=== PATIENT | female | born 1935 | race Hispanic/Latino ===

== ENCOUNTER 2018-04-01 21:41 | Emergency (ER) | payer MEDICARE ==
[~2018-04-01 21:41] MED LIST: AMLO5TAB2 PO; ASPI-1197 PO; ATOR20TA65 PO; CLOP75TA14 PO; FURO-152 PO; HUM10VIA6 SQ; HYDR25TA PO; ISOS60TA4 PO; LOSA50TA37 PO; METO50TA18 PO; RANO10003 PO
[2018-04-01 22:31] LABS: BASOPHILS % (AUTO) 0.3 % (0.0-5.0); EOSINOPHILS % (AUTO) 0.8 % (0.0-8.0); HEMATOCRIT 35.8 % (36-48); LYMPHOCYTES % (AUTO) 13.7 % (21.0-51.0); MEAN CORPUSCULAR HEMOGLOBIN 33.8 pg (27.0-33.0); MEAN CORPUSCULAR HGB CONC 35.6 g/dL (32.0-36.0); MEAN CORPUSCULAR VOLUME 94.9 fL (79-99); MONOCYTES % (AUTO) 5.6 % (3.0-13.0); NEUTROPHILS % (AUTO) 79.6 % (40.0-77.0); PLATELET COUNT (AUTO) 218 K/uL (130-400); RED BLOOD CELL COUNT(AUTO) 3.77 MIL/uL (4.00-5.50); RED CELL DISTRIBUTION WIDTH 12.8 % (11.0-15.5)
[2018-04-01 22:43] LABS: ALBUMIN 3.6 g/dL (3.5-5.0); BILIRUBIN,TOTAL 0.5 mg/dL (0.2-1.0); TOTAL PROTEIN, SERUM 7.1 g/dL (6.0-8.3)
[2018-04-01 23:14] LABS: CREATINE KINASE, TOTAL 90 U/L (21-232)
[2018-04-01 23:16] LABS: LIPASE < 50 U/L (114-286)
[2018-04-01 23:23] LABS: APPEARANCE,URINE Clear (CLEAR); BILIRUBIN,URINE Negative (NEGATIVE); COLOR,URINE Yellow (YELLOW); GLUCOSE, URINE (UA) TRACE mg/dL (NEGATIVE); KETONES,URINE Negative (NEGATIVE); LEUKOCYTE ESTERASE ,URINE Moderate (NEGATIVE); NITRATE,URINE Positive (NEGATIVE); OCCULT BLOOD,URINE Negative (NEGATIVE); PROTEIN,URINE POS 1+ (NEGATIVE)
[2018-04-01 23:32] LABS: RBC,URINE None Seen /HPF (0-1)
[2018-04-01 23:33] LABS: BACTERIA,URINE Many /HPF (None Seen); SQUAMOUS EPITHELIAL CELL,UR Few /HPF (0-2)
[2018-04-02] MEDS ORDERED: SODIUM CHLORIDE 0.9% 50 ML IV ONE (00:45)
[2018-04-02] MEDS ORDERED: CEFTRIAXONE SODIUM 1 GM ONE (00:45)
== END 2018-04-02 01:26 | disposition home or self-care (01) ==
LOC: EDH 21:41
DX: N39.0 Urinary tract infection, site not specified (principal); E86.0 Dehydration; R11.10 Vomiting, unspecified; E78.5 Hyperlipidemia, unspecified; I10 Essential (primary) hypertension; E11.40 Type 2 diabetes mellitus with diabetic neuropathy, unspecified; I25.810 Atherosclerosis of coronary artery bypass graft(s) without angina pectoris; Z86.73 Personal history of transient ischemic attack (TIA), and cerebral infarction without residual deficits; Z95.1 Presence of aortocoronary bypass graft
CPT/HCPCS: 36415; 80053; 81001; 82550; 83690; 84484; 85025; 93005; 96374; 99285; J0696

== ENCOUNTER 2018-07-29 10:15 | Emergency (ER) | payer MEDICARE ==
[~2018-07-29 10:15] MED LIST changes: -AMLO5TAB2 PO; +AMLO5TAB7 PO; +LOSA50TA25 PO; -LOSA50TA37 PO
[2018-07-29 10:43] LABS: BASOPHILS % (AUTO) 0.5 % (0.0-5.0); EOSINOPHILS % (AUTO) 0.7 % (0.0-8.0); HEMATOCRIT 39.3 % (36-48); LYMPHOCYTES % (AUTO) 18.6 % (21.0-51.0); MEAN CORPUSCULAR HGB CONC 35.3 g/dL (32.0-36.0); MEAN CORPUSCULAR VOLUME 96.3 fL (79-99); NEUTROPHILS % (AUTO) 72.2 % (40.0-77.0); PLATELET COUNT (AUTO) 260 K/uL (130-400); RED BLOOD CELL COUNT(AUTO) 4.09 MIL/uL (4.00-5.50); RED CELL DISTRIBUTION WIDTH 12.8 % (11.0-15.5); WHITE BLOOD COUNT (AUTO) 5.9 K/uL (4.8-10.8)
[2018-07-29 10:50] LABS: CREATININE 1.2 mg/dL (0.5-1.5); POTASSIUM 4.9 mmol/L (3.5-5.1)
[2018-07-29 10:58] LABS: ALBUMIN 3.9 g/dL (3.5-5.0); BILIRUBIN,TOTAL 0.5 mg/dL (0.2-1.0); TOTAL PROTEIN, SERUM 7.9 g/dL (6.0-8.3)
[2018-07-29 13:11] LABS: APPEARANCE,URINE Clear (CLEAR); BILIRUBIN,URINE Negative (NEGATIVE); COLOR,URINE Yellow (YELLOW); GLUCOSE, URINE (UA) 500 mg/dL (NEGATIVE); KETONES,URINE Trace mg/dL (NEGATIVE); LEUKOCYTE ESTERASE ,URINE Small (NEGATIVE); NITRATE,URINE Negative (NEGATIVE); OCCULT BLOOD,URINE Negative (NEGATIVE); PH,URINE 6.5 (5.0-8.0); PROTEIN,URINE Negative (NEGATIVE); UROBILINOGEN,URINE 0.2 mg/dL (0.2-1.0)
[2018-07-29 13:28] LABS: BACTERIA,URINE Rare /HPF (None Seen); RBC,URINE 0-1 /HPF (0-1); SQUAMOUS EPITHELIAL CELL,UR Rare /HPF (0-2); TRANSITIONAL EPI CELLS,URINE Few /HPF (None Seen)
[2018-07-29] MEDS ORDERED: ONDANSETRON HCL 4 MG/2 ML VIAL ONE (14:13)
== END 2018-07-29 14:32 | disposition home or self-care (01) ==
LOC: EDH 10:15
DX: N39.0 Urinary tract infection, site not specified (principal); R53.1 Weakness; I25.10 Atherosclerotic heart disease of native coronary artery without angina pectoris; E11.40 Type 2 diabetes mellitus with diabetic neuropathy, unspecified; E78.5 Hyperlipidemia, unspecified; I10 Essential (primary) hypertension; Z86.73 Personal history of transient ischemic attack (TIA), and cerebral infarction without residual deficits
CPT/HCPCS: 36415; 80053; 81001; 84484; 85025; 93005; 96374; 99285; J2405

== ENCOUNTER 2018-08-11 08:24 | Emergency (ER) | payer MEDICARE ==
[2018-08-11] MEDS ORDERED: ASPIRIN 325 MG TABLET ONE (08:36)
[2018-08-11] MEDS ORDERED: MAG HYDROX/AL HYDROX/SIMETH ES 30 ML SUSP UDCUP ONE (10:03)
[2018-08-11] MEDS ORDERED: FAMOTIDINE 20MG TAB 20 MG TAB ONE (10:03)
[2018-08-11] MEDS ORDERED: LIDOCAINE HCL 2% VISCOUS 15 ML UDCUP ONE (10:03)
== END 2018-08-11 11:38 | disposition home or self-care (01) ==
LOC: EDH 08:24
DX: K21.9 Gastro-esophageal reflux disease without esophagitis (principal); R07.89 Other chest pain; I25.10 Atherosclerotic heart disease of native coronary artery without angina pectoris; E11.40 Type 2 diabetes mellitus with diabetic neuropathy, unspecified; E78.5 Hyperlipidemia, unspecified; I10 Essential (primary) hypertension; Z86.73 Personal history of transient ischemic attack (TIA), and cerebral infarction without residual deficits; Z79.4 Long term (current) use of insulin
CPT/HCPCS: 71045; 84484; 93005

== ENCOUNTER → 2018-08-27 | Outpatient (CLI) | payer MEDICARE | END | disposition home or self-care (01) | LOC: RAH 09:21 | PROVIDERS: ATTEND Internal Medicine Gastroenterology | DX: K22.8 Other specified diseases of esophagus (principal); R11.0 Nausea; R68.81 Early satiety; R63.4 Abnormal weight loss | CPT/HCPCS: 74240 ==

== ENCOUNTER → 2019-01-07 | Outpatient (CLI) | payer MEDICARE ==
[~2019-01-07] MED LIST changes: -AMLO5TAB7 PO; +AMLO5TAB9 PO; -LOSA50TA25 PO; +LOSA50TA64 PO
== END | disposition home or self-care (01) ==
LOC: RAH 10:50
PROVIDERS: ATTEND Internal Medicine Gastroenterology
DX: R10.9 Unspecified abdominal pain (principal); R11.0 Nausea; R63.4 Abnormal weight loss; R68.81 Early satiety
CPT/HCPCS: 78264; A9541

== ENCOUNTER 2019-04-02 10:55 | Emergency (ER) | payer MEDICARE ==
[2019-04-02] MEDS ORDERED: ACETAMINOPHEN EXTRA STRENGTH 500 MG TABLET ONE (11:19)
[2019-04-02] MEDS ORDERED: CLINDAMYCIN HCL 150 MG CAP ONE (11:19)
[2019-04-02 11:43] LABS: CREATININE 1.1 mg/dL (0.5-1.5); POTASSIUM 4.5 mmol/L (3.5-5.1)
[2019-04-02 11:48] LABS: BASOPHILS % (AUTO) 0.3 % (0.0-5.0); EOSINOPHILS % (AUTO) 0.5 % (0.0-8.0); HEMATOCRIT 34.3 % (36-48); LYMPHOCYTES % (AUTO) 10.2 % (21.0-51.0); MEAN CORPUSCULAR HEMOGLOBIN 33.1 pg (27.0-33.0); MEAN CORPUSCULAR HGB CONC 34.4 g/dL (32.0-36.0); MEAN CORPUSCULAR VOLUME 96.1 fL (79-99); MONOCYTES % (AUTO) 7.7 % (3.0-13.0); NEUTROPHILS % (AUTO) 81.3 % (40.0-77.0); PLATELET COUNT (AUTO) 190 K/uL (130-400); RED BLOOD CELL COUNT(AUTO) 3.56 MIL/uL (4.00-5.50); RED CELL DISTRIBUTION WIDTH 12.6 % (11.0-15.5); WHITE BLOOD COUNT (AUTO) 8.4 K/uL (4.8-10.8)
[2019-04-05] MEDS ORDERED: HYDR25TA PO (06:40)
[2019-04-05] MEDS ORDERED: FURO20TA4 PO (06:40)
[2019-04-05] MEDS ORDERED: AMLO5TAB9 PO (06:40)
[2019-04-05] MEDS ORDERED: PROM25TA7 PO (06:40)
[2019-04-05] MEDS ORDERED: CLOP75TA32 PO (06:40)
[2019-04-05] MEDS ORDERED: RANO10003 PO (06:40)
[2019-04-05] MEDS ORDERED: ISOS60TA4 PO (06:40)
[2019-04-05] MEDS ORDERED: METO50TA18 PO (06:40)
[2019-04-05] MEDS ORDERED: LOSA50TA64 PO (06:40)
[2019-04-05] MEDS ORDERED: ATOR10 PO (06:40)
[2019-04-05] MEDS ORDERED: PANT20TA12 PO (06:40)
== END 2019-04-02 12:21 | disposition home or self-care (01) ==
LOC: EDH 10:55
DX: L03.032 Cellulitis of left toe (principal); E78.5 Hyperlipidemia, unspecified; I10 Essential (primary) hypertension; E11.40 Type 2 diabetes mellitus with diabetic neuropathy, unspecified; I25.10 Atherosclerotic heart disease of native coronary artery without angina pectoris; Z79.4 Long term (current) use of insulin; Z86.73 Personal history of transient ischemic attack (TIA), and cerebral infarction without residual deficits
CPT/HCPCS: 36415; 73630; 80048; 85025

== ENCOUNTER 2019-07-22 23:46 | Inpatient (IN) | payer MEDICARE ==
[~2019-07-22] VITALS: Ht 152.4 cm; Wt 67.6 kg
[~2019-07-22 23:46] MED LIST changes: -ASPI-1197 PO; +ATOR10 PO; -ATOR20TA65 PO; -CLOP75TA14 PO; +CLOP75TA32 PO; +COLL30OI TP; -FURO-152 PO; +FURO20TA4 PO; -HUM10VIA6 SQ; +NITR0.4T50 SL; +PANT20TA12 PO; +PROM25TA7 PO
[2019-07-23 00:02] LABS: BASOPHILS % (AUTO) 0.4 % (0.0-5.0); EOSINOPHILS % (AUTO) 2.1 % (0.0-8.0); HEMATOCRIT 37.2 % (36-48); LYMPHOCYTES % (AUTO) 13.4 % (21.0-51.0); MEAN CORPUSCULAR HEMOGLOBIN 32.9 pg (27.0-33.0); MEAN CORPUSCULAR HGB CONC 34.4 g/dL (32.0-36.0); MEAN CORPUSCULAR VOLUME 95.7 fL (79-99); MONOCYTES % (AUTO) 7.9 % (3.0-13.0); NEUTROPHILS % (AUTO) 76.2 % (40.0-77.0); PLATELET COUNT (AUTO) 250 K/uL (130-400); RED BLOOD CELL COUNT(AUTO) 3.89 MIL/uL (4.00-5.50); RED CELL DISTRIBUTION WIDTH 13.8 % (11.0-15.5); WHITE BLOOD COUNT (AUTO) 6.9 K/uL (4.8-10.8)
[2019-07-23 00:10] LABS: POTASSIUM 4.8 mmol/L (3.5-5.1)
[2019-07-23 00:15] LABS: ALBUMIN 3.9 g/dL (3.5-5.0); BILIRUBIN,TOTAL 0.5 mg/dL (0.2-1.0); TOTAL PROTEIN, SERUM 7.9 g/dL (6.0-8.3)
[2019-07-23 00:37] LABS: INR 0.93 (0.85-1.15); PROTHROMBIN TIME 9.8 SEC (9.6-11.6)
[2019-07-23] MEDS ORDERED: ORPHENADRINE CITRATE 30 MG/ML ML ONE (02:44)
[2019-07-23] MEDS ORDERED: LIDOCAINE 5% TOPICAL PATCH TP ONE (02:45)
[2019-07-23] MEDS ORDERED: SODIUM CHLORIDE 0.9% 500ML 500 ML IV ONE (02:46)
[2019-07-23] MEDS ORDERED: ASPIRIN 325 MG TABLET ONE (03:26)
[2019-07-23] MEDS ORDERED: ONDANSETRON HCL 4 MG/2 ML VIAL ONE (03:26)
[2019-07-23] MEDS ORDERED: MORPHINE SULFATE 2 MG/ML 1ML SYG ONE (03:27)
[2019-07-23] MEDS ORDERED: ONDANSETRON HCL 4 MG/2 ML VIAL IV PRN (05:00)
[2019-07-23] MEDS ORDERED: MORPHINE SULFATE 2 MG/ML 1ML SYG IV PRN (05:00)
[2019-07-23] MEDS ORDERED: NITROGLYCERIN 0.4 MG SL TAB SL PRN (05:00)
[2019-07-23] MEDS ORDERED: HYDRALAZINE HCL 20 MG/ML VIAL IV PRN (05:00)
[2019-07-23] MEDS ORDERED: ACETAMINOPHEN 325 MG TAB PO PRN (05:00)
[2019-07-23] MEDS ORDERED: MORPHINE SULFATE 4 MG/1ML SYG IV PRN (05:00)
[2019-07-23 05:26] VITALS: BP 121/90
[2019-07-23 06:25] LABS: TROPONIN I 0.21 ng/mL (0.00-0.06)
[2019-07-23 07:00] VITALS: BP 141/46
[2019-07-23 07:58] LABS: BASOPHILS % (AUTO) 0.3 % (0.0-5.0); EOSINOPHILS % (AUTO) 0.7 % (0.0-8.0); HEMATOCRIT 36.1 % (36-48); LYMPHOCYTES % (AUTO) 10.2 % (21.0-51.0); MEAN CORPUSCULAR HEMOGLOBIN 33.6 pg (27.0-33.0); MEAN CORPUSCULAR HGB CONC 34.6 g/dL (32.0-36.0); MEAN CORPUSCULAR VOLUME 96.8 fL (79-99); MONOCYTES % (AUTO) 6.6 % (3.0-13.0); NEUTROPHILS % (AUTO) 82.2 % (40.0-77.0); PLATELET COUNT (AUTO) 213 K/uL (130-400); RED BLOOD CELL COUNT(AUTO) 3.72 MIL/uL (4.00-5.50); RED CELL DISTRIBUTION WIDTH 13.8 % (11.0-15.5); WHITE BLOOD COUNT (AUTO) 6.8 K/uL (4.8-10.8)
[2019-07-23 08:09] LABS: ALBUMIN 3.5 g/dL (3.5-5.0); BILIRUBIN,TOTAL 0.5 mg/dL (0.2-1.0); TOTAL PROTEIN, SERUM 7.2 g/dL (6.0-8.3)
[2019-07-23] MEDS: FAMOTIDINE/PF 20 MG/2 ML VIAL IV SCH (08:56)
[2019-07-23] MEDS: ENOXAPARIN SODIUM 30 MG/0.3 ML SQ SCH (08:57)
[2019-07-23] MEDS ORDERED: METOPROLOL TARTRATE 25 MG TAB PO SCH (09:00)
[2019-07-23] MEDS ORDERED: AEC81 PO (09:11)
[2019-07-23] MEDS ORDERED: CIPR-245 PO (09:11)
[2019-07-23] MEDS: SODIUM CHLORIDE 0.9% 1000ML 1,000 ML IV SCH ×2 (10:46→22:07)
[2019-07-23 11:00] VITALS: BP 125/33
[2019-07-23 12:33] LABS: TROPONIN I 1.31 ng/mL (0.00-0.06)
--- NOTE | 2019-07-23 14:05 | NUR ---
NOTIFIED DR. Humberto CHOWDHURY VIA TELEPHONE RE:TROPONIN-1.31 AND PT. DENIES C/O CHEST PAIN OR TIGHTNESS, NO NEW ORDERS RECEIVED. STATES WILL BE IN TO SEE PT. LATER TODAY.
[2019-07-23 15:00] VITALS: BP 131/42
--- NOTE | 2019-07-23 17:45 | NUR ---
DR. Humberto CHOWDHURY IN ROOM WITH PT. FOR CONSULT; THIS NURSE MOTOR POOL CLERK. PLAN OF CARE EXPLAINED BY DR. CHOWDHURY. QUESTIONS ANSWERED BY LASER BEAM MACHINE OPERATOR, PT. VERBALIZED UNDERSTANDING. Addendum: 07/23/19 at 1755 by LORI GERARDO RN RN PT. ASSESSED BY AT THIS TIME.
[2019-07-23] MEDS: ISOSORBIDE MONO 60 MG TAB.SR PO SCH (18:30)
--- NOTE | 2019-07-23 19:04 | NUR ---
cm note met with patient and states resides at home with son beckie montoya, pt uses walker an cane for ambulation, has w/c and hospital bed. . provider 2hrs daily, provider or daughter take to [facility] dc plan is back tohome at time of dc. no dc needs. Addendum: 07/23/19 at 1907 by ROGELIO SCHILLING CM Amended: Links added.
[2019-07-23 19:09] LABS: TROPONIN I 2.27 ng/mL (0.00-0.06)
[2019-07-23 20:22] VITALS: BP 138/44
[2019-07-23] MEDS: ATORVASTATIN CALCIUM 40 MG TABLET PO SCH (20:57)
[2019-07-23] MEDS: CARVEDILOL 25 MG TABLET PO SCH (20:57)
[2019-07-23] MEDS: CLOPIDOGREL BISULFATE 75 MG TAB PO SCH (20:57)
[2019-07-23] MEDS: LOSARTAN 100 MG TABLET PO SCH (21:00)
[2019-07-23] MEDS: ASPIRIN 81 MG EC TAB PO SCH (21:06)
[2019-07-23] MEDS: ACETAMINOPHEN 325 MG TAB PO PRN (21:06)
[2019-07-23 23:53] VITALS: BP 129/44
[2019-07-24 04:13] VITALS: BP 127/41
[2019-07-24 07:26] VITALS: BP 132/42
[2019-07-24] MEDS ORDERED: ASPIRIN 81 MG EC TAB PO SCH (09:00)
[2019-07-24] MEDS ORDERED: ISOSORBIDE MONO 60 MG TAB.SR PO SCH (09:00)
[2019-07-24] MEDS ORDERED: CLOPIDOGREL BISULFATE 75 MG TAB PO SCH (09:00)
[2019-07-24] MEDS: CLOPIDOGREL BISULFATE 75 MG TAB PO SCH (09:02)
[2019-07-24] MEDS: ASPIRIN 81 MG EC TAB PO SCH (09:02)
[2019-07-24] MEDS: CARVEDILOL 25 MG TABLET PO SCH ×2 (09:02→20:30)
[2019-07-24] MEDS: ENOXAPARIN SODIUM 30 MG/0.3 ML SQ SCH (09:03)
[2019-07-24] MEDS: ISOSORBIDE MONO 60 MG TAB.SR PO SCH (09:03)
[2019-07-24] MEDS: SODIUM CHLORIDE 0.9% 1000ML 1,000 ML IV SCH ×2 (09:04→17:48)
[2019-07-24] MEDS: FAMOTIDINE/PF 20 MG/2 ML VIAL IV SCH (09:12)
[2019-07-24] MEDS ORDERED: ACETAMINOPHEN 325 MG TAB PO SCH (10:15)
[2019-07-24 10:24] LABS: BASOPHILS % (AUTO) 0.4 % (0.0-5.0); EOSINOPHILS % (AUTO) 1.8 % (0.0-8.0); HEMATOCRIT 34.6 % (36-48); LYMPHOCYTES % (AUTO) 14.2 % (21.0-51.0); MEAN CORPUSCULAR HEMOGLOBIN 33.1 pg (27.0-33.0); MEAN CORPUSCULAR HGB CONC 34.3 g/dL (32.0-36.0); MEAN CORPUSCULAR VOLUME 96.6 fL (79-99); MONOCYTES % (AUTO) 8.4 % (3.0-13.0); NEUTROPHILS % (AUTO) 75.2 % (40.0-77.0); PLATELET COUNT (AUTO) 216 K/uL (130-400); RED BLOOD CELL COUNT(AUTO) 3.59 MIL/uL (4.00-5.50); RED CELL DISTRIBUTION WIDTH 13.4 % (11.0-15.5); WHITE BLOOD COUNT (AUTO) 5.2 K/uL (4.8-10.8)
[2019-07-24 10:46] LABS: POTASSIUM 5.1 mmol/L (3.5-5.1)
[2019-07-24 10:47] LABS: ALBUMIN 3.3 g/dL (3.5-5.0); BILIRUBIN,TOTAL 1.3 mg/dL (0.2-1.0); CREATININE 1.1 mg/dL (0.5-1.5); TOTAL PROTEIN, SERUM 6.7 g/dL (6.0-8.3)
[2019-07-24 11:06] VITALS: BP 133/37
--- NOTE | 2019-07-24 11:08 | NUR ---
DR. Ryan SULLIVAN IN ROOM SPEAKING WITH PT.
[2019-07-24] MEDS: LOSARTAN 100 MG TABLET PO SCH (11:33)
[2019-07-24 19:51] VITALS: BP 107/32
[2019-07-24] MEDS: ATORVASTATIN CALCIUM 40 MG TABLET PO SCH (20:29)
[2019-07-24] MEDS ORDERED: INSULIN HUMULIN R 100 UNIT/ML 3ML ONE (21:15)
--- NOTE | 2019-07-24 22:38 | NUR ---
chest pain currently patient denies any chest pain and or chest discomfort. call light within reach and daughter at bedside. Patient asymptomatic at rest, no distress noted.
[2019-07-24 23:51] VITALS: BP 126/45
--- NOTE | 2019-07-25 01:00 | NUR ---
reports chest pressure reports chest pressure, gave nitro sublingual as per protocol X3. Currently refusing morphine. Daughter at bedside, call light within reach. Patient understands to call nurse if pain does not subside.
[2019-07-25 03:35] LABS: BASOPHILS % (AUTO) 0.3 % (0.0-5.0); EOSINOPHILS % (AUTO) 2.7 % (0.0-8.0); HEMATOCRIT 32.2 % (36-48); LYMPHOCYTES % (AUTO) 11.7 % (21.0-51.0); MEAN CORPUSCULAR HEMOGLOBIN 33.4 pg (27.0-33.0); MEAN CORPUSCULAR HGB CONC 34.5 g/dL (32.0-36.0); MEAN CORPUSCULAR VOLUME 96.8 fL (79-99); MONOCYTES % (AUTO) 8.3 % (3.0-13.0); NUCLEATED RED BLOOD CELLS 0.1 % (0.0-0.19); PLATELET COUNT (AUTO) 196 K/uL (130-400); RED BLOOD CELL COUNT(AUTO) 3.32 MIL/uL (4.00-5.50); RED CELL DISTRIBUTION WIDTH 13.5 % (11.0-15.5); WHITE BLOOD COUNT (AUTO) 6.4 K/uL (4.8-10.8)
[2019-07-25 03:47] LABS: CREATININE 0.9 mg/dL (0.5-1.5); POTASSIUM 4.4 mmol/L (3.5-5.1)
[2019-07-25 04:23] VITALS: BP 137/71
[2019-07-25] MEDS: SODIUM CHLORIDE 0.9% 1000ML 1,000 ML IV SCH (05:57)
[2019-07-25] MEDS: INSULIN HUMULIN R 100 UNIT/ML 3ML SQ SCH ×4 (06:21→21:30)
[2019-07-25 08:01] VITALS: BP 163/53
[2019-07-25] MEDS: LOSARTAN 100 MG TABLET PO SCH (09:09)
[2019-07-25] MEDS: ASPIRIN 81 MG EC TAB PO SCH (09:09)
[2019-07-25] MEDS: CARVEDILOL 25 MG TABLET PO SCH (09:10)
[2019-07-25] MEDS: ISOSORBIDE MONO 60 MG TAB.SR PO SCH (09:10)
[2019-07-25] MEDS: FAMOTIDINE/PF 20 MG/2 ML VIAL IV SCH (09:10)
[2019-07-25] MEDS: CLOPIDOGREL BISULFATE 75 MG TAB PO SCH (09:10)
[2019-07-25] MEDS: ENOXAPARIN SODIUM 30 MG/0.3 ML SQ SCH (09:11)
[2019-07-25] MEDS: ACETAMINOPHEN 325 MG TAB PO PRN (09:34)
[2019-07-25 11:54] VITALS: BP 99/52
--- NOTE | 2019-07-25 15:27 | NUR ---
[facility] CONSULT PATIENT ASSESSED REQUESTED: PATIENT PRESENTS WITH DIABETIC FOOT ULCER TO LEFT GREAT TOE; [facility] RECOMMENDATIONS SUBMITTED. Addendum: 07/25/19 at 1529 by ANDRADE JON LVN LVN W Amended: Links added.
[2019-07-25 16:28] VITALS: BP 127/44
[2019-07-25] MEDS: INSULIN LISPRO 100 UNIT/ML 3ML SQ SCH (17:00)
[2019-07-25 20:35] VITALS: BP 132/56
[2019-07-25] MEDS ORDERED: ATORVASTATIN CALCIUM 10 MG TABLET PO SCH (21:00)
[2019-07-25] MEDS: ATORVASTATIN CALCIUM 40 MG TABLET PO SCH (21:16)
[2019-07-25] MEDS: TICAGRELOR 90 MG TABLET PO SCH (21:16)
[2019-07-25] MEDS: RANOLAZINE 500 MG TAB.SR.12H PO SCH (21:16)
[2019-07-25] MEDS: CARVEDILOL 12.5 MG TABLET PO SCH (21:17)
[2019-07-25] MEDS: INSULIN GLARGINE 100 UNITS/ML 10 ML VIAL SQ SCH (21:46)
[2019-07-25 23:40] VITALS: BP 135/51
[2019-07-26 04:43] LABS: CREATININE 0.8 mg/dL (0.5-1.5); POTASSIUM 3.9 mmol/L (3.5-5.1)
[2019-07-26 04:47] LABS: BASOPHILS % (AUTO) 0.5 % (0.0-5.0); EOSINOPHILS % (AUTO) 2.5 % (0.0-8.0); HEMATOCRIT 31.7 % (36-48); LYMPHOCYTES % (AUTO) 13.9 % (21.0-51.0); MEAN CORPUSCULAR HEMOGLOBIN 33.6 pg (27.0-33.0); MEAN CORPUSCULAR HGB CONC 35.3 g/dL (32.0-36.0); MEAN CORPUSCULAR VOLUME 95.1 fL (79-99); NEUTROPHILS % (AUTO) 74.1 % (40.0-77.0); NUCLEATED RED BLOOD CELLS 0.1 % (0.0-0.19); PLATELET COUNT (AUTO) 196 K/uL (130-400); RED BLOOD CELL COUNT(AUTO) 3.34 MIL/uL (4.00-5.50); RED CELL DISTRIBUTION WIDTH 13.4 % (11.0-15.5); WHITE BLOOD COUNT (AUTO) 5.7 K/uL (4.8-10.8)
[2019-07-26 05:14] LABS: HEMOGLOBIN A1C 6.8 % (4.0-6.0)
[2019-07-26 05:21] VITALS: BP 140/60
[2019-07-26] MEDS: INSULIN HUMULIN R 100 UNIT/ML 3ML SQ SCH ×4 (06:55→21:00)
[2019-07-26] MEDS: INSULIN LISPRO 100 UNIT/ML 3ML SQ SCH ×3 (06:57→17:16)
[2019-07-26 07:56] VITALS: BP 180/79
[2019-07-26] MEDS: COLLAGENASE CLOSTRIDIUM HIST TP SCH (09:00)
[2019-07-26] MEDS: LOSARTAN 100 MG TABLET PO SCH (09:45)
[2019-07-26] MEDS: RANOLAZINE 500 MG TAB.SR.12H PO SCH ×2 (09:45→21:23)
[2019-07-26] MEDS: FAMOTIDINE/PF 20 MG/2 ML VIAL IV SCH (09:45)
[2019-07-26] MEDS: HYDROCHLOROTHIAZIDE 25 MG TABLET PO SCH (09:46)
[2019-07-26] MEDS: ISOSORBIDE MONO 60 MG TAB.SR PO SCH (09:46)
[2019-07-26] MEDS: TICAGRELOR 90 MG TABLET PO SCH ×2 (09:46→21:24)
[2019-07-26] MEDS: PANTOPRAZOLE SODIUM 40 MG TABLET.DR PO SCH (09:46)
[2019-07-26] MEDS: ASPIRIN 81 MG EC TAB PO SCH (09:46)
[2019-07-26] MEDS: FUROSEMIDE 20 MG TABLET PO SCH (09:47)
[2019-07-26] MEDS: AMLODIPINE BESYLATE 5 MG TAB PO SCH (09:47)
[2019-07-26] MEDS: CARVEDILOL 12.5 MG TABLET PO SCH ×2 (09:47→21:24)
[2019-07-26] MEDS: ENOXAPARIN SODIUM 30 MG/0.3 ML SQ SCH (09:49)
[2019-07-26 11:37] VITALS: BP 145/52
[2019-07-26 16:19] VITALS: BP 129/53
[2019-07-26 20:13] VITALS: BP 135/54
[2019-07-26] MEDS: ATORVASTATIN CALCIUM 40 MG TABLET PO SCH (21:24)
[2019-07-26] MEDS: INSULIN GLARGINE 100 UNITS/ML 10 ML VIAL SQ SCH (21:34)
[2019-07-27] VITALS: BP 130/56
[2019-07-27 04:03] LABS: BASOPHILS % (AUTO) 0.5 % (0.0-5.0); HEMATOCRIT 34.2 % (36-48); LYMPHOCYTES % (AUTO) 13.1 % (21.0-51.0); MEAN CORPUSCULAR HEMOGLOBIN 33.5 pg (27.0-33.0); MEAN CORPUSCULAR HGB CONC 34.6 g/dL (32.0-36.0); MEAN CORPUSCULAR VOLUME 96.9 fL (79-99); MONOCYTES % (AUTO) 10.1 % (3.0-13.0); NEUTROPHILS % (AUTO) 73.3 % (40.0-77.0); PLATELET COUNT (AUTO) 186 K/uL (130-400); RED BLOOD CELL COUNT(AUTO) 3.53 MIL/uL (4.00-5.50); RED CELL DISTRIBUTION WIDTH 13.9 % (11.0-15.5); WHITE BLOOD COUNT (AUTO) 5.9 K/uL (4.8-10.8)
[2019-07-27 04:07] VITALS: BP 120/86
[2019-07-27 04:14] LABS: CREATININE 0.9 mg/dL (0.5-1.5); MAGNESIUM 1.7 mg/dL (1.80-2.40); PHOSPHORUS 3.8 mg/dL (2.5-4.9); POTASSIUM 3.9 mmol/L (3.5-5.1)
[2019-07-27] MEDS: INSULIN HUMULIN R 100 UNIT/ML 3ML SQ SCH ×2 (06:49→17:05)
[2019-07-27] MEDS: INSULIN LISPRO 100 UNIT/ML 3ML SQ SCH ×3 (06:50→17:08)
[2019-07-27 07:48] VITALS: BP 143/69
[2019-07-27] MEDS: COLLAGENASE CLOSTRIDIUM HIST TP SCH (09:00)
[2019-07-27] MEDS ORDERED: FAMOTIDINE 20MG TAB 20 MG TAB PO SCH (09:00)
--- NOTE | 2019-07-27 09:00 | NUR ---
AM ASSESSMENT PT LAYING IN BED, HOB ELEVATED 30 DEGREES, WATCHING TV. FAMILY @ BEDSIDE. A/O X 3. SPA SPEAKING ONLY. NO SOB. NO DISTRESS NOTED. DENIES CHEST PAIN OR DISCOMFORT. DENIES PALPITATIONS. TELE: SR. DENIES N/V AND/OR DIARRHEA. LT GREAT TO DSG DRY & INTACT. NO DRAINAGE NOTED. UP W/ASSISTANCE, WALKER @ BEDSIDE. INSTRUCTED TO CALL FOR ASSISTANCE. CALL MIRELLA W/IN REACH.
[2019-07-27] MEDS: ASPIRIN 81 MG EC TAB PO SCH (09:37)
[2019-07-27] MEDS: LOSARTAN 100 MG TABLET PO SCH (09:37)
[2019-07-27] MEDS: CARVEDILOL 12.5 MG TABLET PO SCH (09:38)
[2019-07-27] MEDS: PANTOPRAZOLE SODIUM 40 MG TABLET.DR PO SCH (09:38)
[2019-07-27] MEDS: RANOLAZINE 500 MG TAB.SR.12H PO SCH (09:38)
[2019-07-27] MEDS: AMLODIPINE BESYLATE 5 MG TAB PO SCH (09:38)
[2019-07-27] MEDS: FUROSEMIDE 20 MG TABLET PO SCH (09:39)
[2019-07-27] MEDS: TICAGRELOR 90 MG TABLET PO SCH (09:39)
[2019-07-27] MEDS: ISOSORBIDE MONO 60 MG TAB.SR PO SCH (09:39)
[2019-07-27] MEDS: HYDROCHLOROTHIAZIDE 25 MG TABLET PO SCH (09:39)
[2019-07-27] MEDS: ENOXAPARIN SODIUM 30 MG/0.3 ML SQ SCH (09:43)
[2019-07-27] MEDS ORDERED: MAGNESIUM 2GM PREMIX 50ML 50 ML IV PRN (09:45)
[2019-07-27 11:51] VITALS: BP 150/53
[2019-07-27 15:44] VITALS: BP 120/68
[2019-07-27] MEDS ORDERED: ATOR40TA69 PO (17:30)
[2019-07-27] MEDS ORDERED: TICA90TA PO (17:30)
[2019-07-27] MEDS ORDERED: CARV12.580 PO (17:30)
[2019-07-27] MEDS ORDERED: FURO20TA6 PO (17:30)
[2019-07-27] MEDS ORDERED: LOSA100T2 PO (17:30)
--- NOTE | 2019-07-27 18:45 | NUR ---
DISCHARGE VERBAL & WRITTEN DISCHARGE INSTRUCTIONS REVIEWED & GIVEN TO PT & DAUGHTER. QUESTIONS ENCOURAGED & CLARIFIED. 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 NEW PRESCRIBED MEDICATIONS, DOSE ADJUSTMENTS ON HOME MEDICATIONS, & DISCONTINUED MEDICATIONS REVIEWED W/PT & DAUGHTER. INFORMED PRESCRIPTION TRANSMITTED TO PHARMACY IN FILE. F/U APPT REVIEWED. TELE LURDES REMOVED. IV DISCONTINUED. LT GREAT TOE DSG CHANGE DONE @ THIS TIME. TOLERATED WELL. PT & DAUGHTER TO GATHER PERSONAL BELONGINGS. WILL NOTIFY STAFF WHEN READY TO BE TAKEN TO PRIVATE VEHICLE.
--- NOTE | 2019-07-27 19:10 | NUR ---
DISCHARGE PT TAKEN TO PRIVATE VEHICLE VIA WC BY KIRAN LOW, ACCOMPANIED BY PT'S DAUGHTER. NO DISTRESS NOTED.
== END 2019-07-27 19:12 | disposition home or self-care (01) | DRG 280 ==
LOC: EDH 23:46 → EDHIP 07-23 04:08 → 2AH 07-23 05:01
PROVIDERS: ADMIT Internal Medicine; ATTEND Internal Medicine
DX: I21.4 Non-ST elevation (NSTEMI) myocardial infarction (principal); I50.43 Acute on chronic combined systolic (congestive) and diastolic (congestive) heart failure; E87.1 Hypo-osmolality and hyponatremia; I13.0 Hypertensive heart and chronic kidney disease with heart failure and stage 1 through stage 4 chronic kidney disease, or unspecified chronic kidney disease; I45.2 Bifascicular block; E11.65 Type 2 diabetes mellitus with hyperglycemia; I34.0 Nonrheumatic mitral (valve) insufficiency; I25.5 Ischemic cardiomyopathy; I25.110 Atherosclerotic heart disease of native coronary artery with unstable angina pectoris; E78.5 Hyperlipidemia, unspecified; J44.9 Chronic obstructive pulmonary disease, unspecified; E11.22 Type 2 diabetes mellitus with diabetic chronic kidney disease; L97.529 Non-pressure chronic ulcer of other part of left foot with unspecified severity; E11.621 Type 2 diabetes mellitus with foot ulcer; E11.40 Type 2 diabetes mellitus with diabetic neuropathy, unspecified; E11.51 Type 2 diabetes mellitus with diabetic peripheral angiopathy without gangrene; N18.3 Chronic kidney disease, stage 3 (moderate); Z95.810 Presence of automatic (implantable) cardiac defibrillator; Z95.5 Presence of coronary angioplasty implant and graft; Z83.3 Family history of diabetes mellitus; Z82.49 Family history of ischemic heart disease and other diseases of the circulatory system; Z86.73 Personal history of transient ischemic attack (TIA), and cerebral infarction without residual deficits; I25.2 Old myocardial infarction; Z95.1 Presence of aortocoronary bypass graft; Z79.4 Long term (current) use of insulin
CPT/HCPCS: 36415; 71045; 80048; 80053; 80061; 82550; 82948; 83036; 83735; 83874; 83880; 84100; 84484; 85025; 85610; 85730; 93005; G0378; J1650; J1815; J2405; J3475; J3490; J7030; J7040

== ENCOUNTER → 2019-08-25 | Outpatient (CLI) | payer MEDICARE ==
[~2019-08-25] MED LIST changes: +AEC81 PO; -ATOR10 PO; +ATOR40TA69 PO; +CARV12.580 PO; -CLOP75TA32 PO; -FURO20TA4 PO; +FURO20TA6 PO; +IOHEXOL 350 MG/ML 100ML INFUS..BTL IV ONE; +IOHEXOL-350 50ML VIAL IV ONE; +LOSA100T2 PO; -LOSA50TA64 PO; -METO50TA18 PO; +TICA90TA PO
== END | disposition home or self-care (01) ==
LOC: RAH 07:42
PROVIDERS: ATTEND Internal Medicine Cardiovascular Disease
DX: I70.293 Other atherosclerosis of native arteries of extremities, bilateral legs (principal); K80.20 Calculus of gallbladder without cholecystitis without obstruction; K43.9 Ventral hernia without obstruction or gangrene
CPT/HCPCS: 75635; Q9967 ×2

== ENCOUNTER 2019-08-31 02:36 | Emergency (ER) | payer MEDICARE ==
[~2019-08-31 02:36] MED LIST changes: -IOHEXOL 350 MG/ML 100ML INFUS..BTL IV ONE; -IOHEXOL-350 50ML VIAL IV ONE
[2019-08-31] MEDS ORDERED: LIDOCAINE HCL 2% VISCOUS 15 ML UDCUP ONE (03:29)
[2019-08-31] MEDS ORDERED: MAG HYDROX/AL HYDROX/SIMETH ES 30 ML SUSP UDCUP ONE (03:30)
[2019-08-31 03:47] LABS: BASOPHILS % (AUTO) 0.4 % (0.0-5.0); EOSINOPHILS % (AUTO) 1.3 % (0.0-8.0); HEMATOCRIT 35.9 % (36-48); LYMPHOCYTES % (AUTO) 16.5 % (21.0-51.0); MEAN CORPUSCULAR HEMOGLOBIN 33.1 pg (27.0-33.0); MEAN CORPUSCULAR HGB CONC 35.9 g/dL (32.0-36.0); MEAN CORPUSCULAR VOLUME 92.3 fL (79-99); NEUTROPHILS % (AUTO) 73.8 % (40.0-77.0); PLATELET COUNT (AUTO) 240 K/uL (130-400); RED BLOOD CELL COUNT(AUTO) 3.89 MIL/uL (4.00-5.50); RED CELL DISTRIBUTION WIDTH 13.5 % (11.0-15.5); WHITE BLOOD COUNT (AUTO) 5.6 K/uL (4.8-10.8)
[2019-08-31 03:56] LABS: CREATININE 0.9 mg/dL (0.5-1.5); POTASSIUM 3.7 mmol/L (3.5-5.1)
== END 2019-08-31 05:08 | disposition home or self-care (01) ==
LOC: EDH 02:36
DX: R51 Headache (principal); I25.810 Atherosclerosis of coronary artery bypass graft(s) without angina pectoris; E78.5 Hyperlipidemia, unspecified; I10 Essential (primary) hypertension; E11.40 Type 2 diabetes mellitus with diabetic neuropathy, unspecified; Z79.4 Long term (current) use of insulin
CPT/HCPCS: 36415; 71045; 80048; 84484; 85025; 93005

== ENCOUNTER 2019-10-17 14:30 | Emergency (ER) | payer MEDICARE ==
[~2019-10-17 14:30] MED LIST changes: -HYDR25TA PO; +INSU100I35 SQ; +ISOS120T14 PO; -ISOS60TA4 PO
[2019-10-17 15:21] LABS: BASOPHILS % (AUTO) 0.3 % (0.0-5.0); EOSINOPHILS % (AUTO) 0.9 % (0.0-8.0); HEMATOCRIT 31.8 % (36-48); LYMPHOCYTES % (AUTO) 9.5 % (21.0-51.0); MEAN CORPUSCULAR HEMOGLOBIN 31.9 pg (27.0-33.0); MEAN CORPUSCULAR HGB CONC 33.6 g/dL (32.0-36.0); MEAN CORPUSCULAR VOLUME 94.9 fL (79-99); MONOCYTES % (AUTO) 8.6 % (3.0-13.0); NEUTROPHILS % (AUTO) 80.2 % (40.0-77.0); PLATELET COUNT (AUTO) 239 K/uL (130-400); RED BLOOD CELL COUNT(AUTO) 3.35 MIL/uL (4.00-5.50); RED CELL DISTRIBUTION WIDTH 13.2 % (11.0-15.5); WHITE BLOOD COUNT (AUTO) 6.6 K/uL (4.8-10.8)
[2019-10-17 15:40] LABS: CREATININE 0.9 mg/dL (0.5-1.5); POTASSIUM 3.8 mmol/L (3.5-5.1)
[2019-10-17 15:44] LABS: ALBUMIN 3.5 g/dL (3.5-5.0); BILIRUBIN,TOTAL 0.5 mg/dL (0.2-1.0); TOTAL PROTEIN, SERUM 7.2 g/dL (6.0-8.3)
[2019-10-17] MEDS ORDERED: CEFTRIAXONE SODIUM 1 GM ONE (15:44)
[2019-10-17] MEDS ORDERED: SODIUM CHLORIDE 0.9% 100 ML IV ONE (15:44)
[2019-10-17] MEDS ORDERED: ACETAMINOPHEN 325 MG TAB ONE (15:54)
[2019-10-20] MEDS ORDERED: TYLENOL PO (11:38)
[2019-10-20] MEDS ORDERED: LOSA50TA64 PO (11:38)
[2019-10-20] MEDS ORDERED: AMOX-426 PO (11:39)
== END 2019-10-17 16:30 | disposition home or self-care (01) ==
LOC: EDH 14:30
DX: L03.032 Cellulitis of left toe (principal); L97.529 Non-pressure chronic ulcer of other part of left foot with unspecified severity; I10 Essential (primary) hypertension; E78.5 Hyperlipidemia, unspecified; E11.40 Type 2 diabetes mellitus with diabetic neuropathy, unspecified; I25.810 Atherosclerosis of coronary artery bypass graft(s) without angina pectoris
CPT/HCPCS: 36415; 73660; 80053; 85025; 96374; 99285; J0696

== ENCOUNTER → 2019-10-20 | Outpatient (CLI) | payer MEDICARE ==
[~2019-10-20] VITALS: Ht 152.4 cm; Wt 68.5 kg
[~2019-10-20] MED LIST changes: +AMOX-426 PO; +LOSA50TA64 PO; +TYLENOL PO
[2019-10-20 09:45] VITALS: BP 126/61
[2019-10-20 09:55] LABS: BASOPHILS % (AUTO) 0.4 % (0.0-5.0); EOSINOPHILS % (AUTO) 1.2 % (0.0-8.0); HEMATOCRIT 30.5 % (36-48); LYMPHOCYTES % (AUTO) 7.1 % (21.0-51.0); MEAN CORPUSCULAR HEMOGLOBIN 32.3 pg (27.0-33.0); MEAN CORPUSCULAR HGB CONC 33.1 g/dL (32.0-36.0); MEAN CORPUSCULAR VOLUME 97.4 fL (79-99); MONOCYTES % (AUTO) 10.5 % (3.0-13.0); NEUTROPHILS % (AUTO) 80.2 % (40.0-77.0); PLATELET COUNT (AUTO) 212 K/uL (130-400); RED BLOOD CELL COUNT(AUTO) 3.13 MIL/uL (4.00-5.50); RED CELL DISTRIBUTION WIDTH 13.7 % (11.0-15.5)
--- NOTE | 2019-10-20 10:05 | NUR ---
TOE INFECTION INFORMED DR. SUMMERS OF PT HAVING AN INFECTION TO LEFT BIG TOE AND GIVEN AUGMENTIN. PROCEED WITH PLANNED PROCEDURE.
[2019-10-20 10:08] LABS: CREATININE 1.1 mg/dL (0.5-1.5); POTASSIUM 4.4 mmol/L (3.5-5.1)
[2019-10-20 10:10] LABS: INR 0.96 (0.85-1.15); PARTIAL THROMBOPLASTIN TIME 29.1 SEC (26.3-35.5); PROTHROMBIN TIME 10.1 SEC (9.6-11.6)
[2019-10-20 11:07] LABS: APPEARANCE,URINE Clear (CLEAR); BILIRUBIN,URINE Negative (NEGATIVE); COLOR,URINE Yellow (YELLOW); GLUCOSE, URINE (UA) 500 mg/dL (NEGATIVE); KETONES,URINE Negative (NEGATIVE); LEUKOCYTE ESTERASE ,URINE Trace (NEGATIVE); NITRATE,URINE Negative (NEGATIVE); OCCULT BLOOD,URINE Negative (NEGATIVE); PROTEIN,URINE Negative (NEGATIVE)
[2019-10-20 11:38] LABS: BACTERIA,URINE Rare /HPF (None Seen); RBC,URINE 0-1 /HPF (0-1); SQUAMOUS EPITHELIAL CELL,UR Rare /HPF (0-2); WBC,URINE 0-1 /HPF (0-1)
--- NOTE | 2019-10-24 11:16 | NUR ---
ABNORMAL LABS LOW H/H, NA LEVEL, TRACE URINE LEUKEST REPORTED TO DR. SUMMERS. NO FURTHER ORDERS GIVEN, MAY PROCEED WITH PLANNED PROCEDURE.
== END ==
LOC: EDSTATUS 09:00 → DAH 10:00
PROVIDERS: ATTEND Internal Medicine Cardiovascular Disease
DX: Z01.818 Encounter for other preprocedural examination (principal); I73.9 Peripheral vascular disease, unspecified; Z79.82 Long term (current) use of aspirin; Z79.4 Long term (current) use of insulin; Z79.899 Other long term (current) drug therapy; Z83.3 Family history of diabetes mellitus; Z82.49 Family history of ischemic heart disease and other diseases of the circulatory system; Z82.5 Family history of asthma and other chronic lower respiratory diseases
CPT/HCPCS: 36415; 71045; 80048; 81001; 85025; 85610; 85730; 93005